=== PATIENT | female | born 1980 | race Caucasian/White ===

== ENCOUNTER 2019-09-01 10:11 | Emergency (ER) | payer OTHER, SELFPAY ==
--- NOTE | 2019-09-01 10:16 | ED.GENADULT ---
HPI - General Adult General Chief complaint: Urogenital-Female Stated complaint: Possible uti Time Seen by Provider: 09/01/19 10:16 Source: patient Mode of arrival: ambulatory Limitations: no limitations History of Present Illness HPI narrative: 39-year-old female patient presents to the [facility] with complaints of urinary symptoms for the past 4 days. Patient states that she had called her primary doctor and they did not see her for the symptoms but they did order some Macrobid. Patient states she has been on the Macrobid now for 4 days but continues now to have worsening symptoms including worsening pain with urination, urgency, frequency. Denies any pain or fevers that she is aware of. Related Data Home Medications Medication Instructions Recorded Confirmed duloxetine 60 mg PO DAILY 09/01/19 09/01/19 lisinopril 10 mg PO DAILY 09/01/19 09/01/19 nitrofurantoin monohyd/m-cryst 100 mg PO BID 09/01/19 09/01/19 Allergies Allergy/AdvReac Type Severity Reaction Status Date / Time No Known Allergies Allergy Unknown Verified 09/01/19 10:25 Review of Systems Review of Systems: Narrative: CONSTITUTIONAL: Denies fever, chills, or sweats. EYES: Denies visual changes, redness, or discharge. ENT: Denies rhinorrhea, congestion, sore throat, or otalgia. CARDIOVASCULAR: Denies chest pain, palpitations, or edema. RESPIRATORY: Denies cough or dyspnea. GASTROINTESTINAL: Denies abdominal pain, nausea, vomiting, or diarrhea. GENITOURINARY: Denies dysuria or hematuria.pain with urination, urgency and frequency SKIN: Denies rash or itching. MUSCULOSKELETAL: Denies back pain, joint pain, or myalgia. NEUROLOGIC: Denies headache, numbness, or weakness. PSYCHIATRIC: Denies anxiety or depression. PMFSH Comments At the time of my signature I agree with nursing past medical history, surgical, social, and family history. There is no relevant family history pertinent to the presenting complaint. Exam Narrative: Exam Narrative: GENERAL: Well-appearing, well-nourished, and in no acute distress. HEAD: Normocephalic, atraumatic. EYES: PERRLA and EOMI. ENT: Nares clear, no rhinorrhea or epistaxis. Mucous membranes moist. NECK: Supple. No lymphadenopathy CHEST: Clear to auscultation. No respiratory distress. HEART: Regular rate and rhythm. No murmur heard. Normal peripheral pulses. ABDOMEN: Soft, nontender, nondistended, normal active bowel sounds. No CVA tenderness on percussion. EXTREMITIES: Normal range of motion. No edema. SKIN: Warm, dry, no rash. NEURO: No focal deficits. Alert and oriented x3. Course Vital Signs Vital signs: Vital Signs Temperature 37.2 C 09/01/19 10:23 Pulse Rate 110 H 09/01/19 10:23 Respiratory Rate 16 09/01/19 10:23 Blood Pressure 130/85 09/01/19 10:23 Pulse Oximetry 99 09/01/19 10:23 Temperature 37.2 C 09/01/19 10:23 Pulse Rate 110 H 09/01/19 10:23 Respiratory Rate 16 09/01/19 10:23 Blood Pressure 130/85 09/01/19 10:23 Pulse Oximetry 99 09/01/19 10:23 Vital signs reviewed. Medical Decision Making Differential Diagnosis Differential Diagnosis: Differential diagnosis: Uncomplicated lower UTI, uncomplicated UTI, pyelonephritis Discussed with patient that we will go ahead and change her antibiotic to a different type of antibiotic to see if this helps relieve the symptoms and we will take the urine and send it off to the lab for culture. Discussed with patient if she still continues not to get relief with the antibiotic that she would need to call make an appoint with her primary doctor. Patient verbalized understanding denies any other questions or concerns at this time. Vital Signs Vital Signs: Vital Signs Temperature 37.2 C 09/01/19 10:23 Pulse Rate 110 H 09/01/19 10:23 Respiratory Rate 16 09/01/19 10:23 Blood Pressure 130/85 09/01/19 10:23 Pulse Oximetry 99 09/01/19 10:23 Temperature 37.2 C 09/01/19 10:23 Pulse Rate 110 H 09/01/19 10:23 Respira
[2019-09-01 10:23] VITALS: BP 130/85; PULSE 110; RESP 16; TEMP 37.2; O2SAT 99
== END 2019-09-01 11:10 | disposition home or self-care (01) ==
PROVIDERS: Emergency Provider Nurse Practitioner Family; PCP Internal Medicine
DX: N30.00 Acute cystitis without hematuria (principal); I10 Essential (primary) hypertension
CPT/HCPCS: 81003; 87086; 87088; 99213; G0463